=== PATIENT | female | born 1980 | race Caucasian/White ===

== ENCOUNTER 2025-01-20 14:40 | Outpatient (REF) | payer OTHER, SELFPAY ==
[2025-01-20 15:40] LABS: BUN 21 mg/dL (7-18); CREATININE 0.8 mg/dL (0.55-1.02); Calcium 8.5 mg/dL (8.5-10.1); Calculated LDL 176 mg/dL (<100); Chloride 107 mmol/L (98-107); Cholesterol 260 mg/dL (<200); Estimated GFR 92.54 (mL/min/1.73m2); Glucose 83 mg/dL (74-106); HDL Cholesterol 72 mg/dL (>or=50); Potassium 3.9 mmol/L (3.5-5.1); Sodium 141 mmol/L (136-145); Triglyceride 61 mg/dL (<150)
== END 2025-01-20 14:41 | disposition home or self-care (01) ==
LOC: NCHCN 14:40
PROVIDERS: Visit Provider Family Medicine
DX: R63.5 Abnormal weight gain (principal); Z13.220 Encounter for screening for lipoid disorders
CPT/HCPCS: 80048; 80061; 84443

== ENCOUNTER 2025-02-02 11:24 | Outpatient (REF) | payer OTHER, SELFPAY ==
[2025-02-02 14:43] LABS: TSH (W/Ref FT4) 2.29 uIU/mL (0.36-3.74)
== END 2025-02-02 11:25 | disposition home or self-care (01) ==
LOC: NCHCN 11:24
PROVIDERS: Visit Provider Family Medicine
DX: Z00.00 Encounter for general adult medical examination without abnormal findings (principal); Z13.29 Encounter for screening for other suspected endocrine disorder
CPT/HCPCS: 84443